=== PATIENT | male | born 1995 | race Caucasian/White ===

== ENCOUNTER 2016-10-24 11:28 | Emergency (ER) | payer OTHER ==
[2016-10-24 12:01] VITALS: BP 135/65; PULSE 56; TEMP 97.8; BMI 21.5
--- NOTE | 2016-10-24 12:48 | PDOC ---
History of Present Illness <Jin Briceño - Last Filed: 10/24/16 14:31> - General History Source: Patient Exam Limitations: No Limitations - History of Present Illness Initial Comments: 10/24/16 12:49 The patient is a 21 year old male, with significant past medical history of kidney stones, who presents today complaining of left sided chest pain and right flank pain. The patient states that the chest pain is intermittent since 5am this morning, lasting 30 seconds to 1 minute and spontaneously resolved. It is sharp, 5/10 in severity, and non-radiating. He notes that he visited a clinic this morning and was told he was bradycardic. He notes that since the appointment, the chest pain has become constant. 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 He reports right flank pain that radiates to his right side. He notes some nausea, but denies vomiting. He reports urinary frequency, but no hematuria. Denies dysuria, hematuria. Denies fever, chills, vomiting. Denies SOB, palpitations, cough. Denies abdominal pain. Allergies: none reported Social Hx: Tobacco use. Family Hx: Lung cancer, heart disease. No PCP <Melisa Gimenez - Last Filed: 10/24/16 14:43> - General Chief Complaint: Chest Pain Stated Complaint: CHEST PAIN Time Seen by Provider: 10/24/16 12:22 Past History - Past Medical History Cardiac Disorders: Yes (bradycardia) - Psycho/Social/Smoking Cessation Hx Anxiety: No Suicidal Ideation: No Smoking History: Current every day smoker Have you smoked in the past 12 months: Yes Number of Cigarettes Smoked Daily: 0 Information on smoking cessation initiated: No Hx Alcohol Use: No Drug/Substance Use Hx: No Substance Use Type: None <Jin Briceño - Last Filed: 10/24/16 14:31> <Melisa Gimenez - Last Filed: 10/24/16 14:43> - Past Medical History Allergies/Adverse Reactions: Allergies Allergy/AdvReac Type Severity Reaction Status Date / Time No Known Allergies Allergy Unverified 10/24/16 12:33 Home Medications: Ambulatory Orders Ibuprofen 800 mg PO TID #90 tablet 10/24/16 Review of Systems - Review of Systems Able to Perform ROS?: Yes Comments:: 10/24/16 12:49 GENERAL/CONSTITUTIONAL: No fever or chills. No weakness. HEAD, EYES, EARS, NOSE AND THROAT: No change in vision. No ear pain or discharge. No sore throat. CARDIOVASCULAR: +left sided chest pain. No shortness of breath. RESPIRATORY: No cough, wheezing, or hemoptysis. GASTROINTESTINAL: No nausea, vomiting, diarrhea or constipation. GENITOURINARY: + right flank pain, +frequency. No dysuria, hematuria. MUSCULOSKELETAL: No joint or muscle swelling or pain. No neck or back pain. SKIN: No rash NEUROLOGIC: No headache, vertigo, loss of consciousness, or change in strength/ sensation. ENDOCRINE: No increased thirst. No abnormal weight change. HEMATOLOGIC/LYMPHATIC: No anemia, easy bleeding, or history of blood clots. ALLERGIC/IMMUNOLOGIC: No hives or skin allergy. <Melisa Gimenez - Last Filed: 10/24/16 14:43> *Physical Exam - Vital Signs Last Vital Signs Temp Pulse Resp BP Pulse Ox 97.8 F 56 L 18 135/65 98 10/24/16 11:39 10/24/16 11:39 10/24/16 11:39 10/24/16 11:39 10/24/16 11:39 <Jin Briceño - Last Filed: 10/24/16 14:31> - Vital Signs Last Vital Signs Temp Pulse Resp BP Pulse Ox 97.8 F 56 L 18 135/65 98 10/24/16 11:39 10/24/16 11:39 10/24/16 11:39 10/24/16 11:39 10/24/16 11:39 - Physical Exam Comments: 10/24/16 12:49 GENERAL: Awake, alert, and fully oriented, in no acute distress HEAD: No signs of trauma EYES: PERRLA, EOMI, sclera anicteric, conjunctiva clear ENT: Auricles normal inspection, hearing grossly normal, nares patent, oropharynx clear without exudates. Moist mucosa NECK: Normal ROM, supple, no lymphadenopathy, JVD, or masses LUNGS: Breath sounds equal, clear to auscultation bilaterally. No wheezes, and no crackles HEART: Regular rate and rhythm, normal S1 and S2, no murmurs, rubs or gallops CHEST: Reproducible chest pain. ABDOMEN: Soft, nontender, normoactive bowel sounds. No guarding, no rebound. No masses EXTREMITIES: Normal range of motion, no edema. No clubbing or cyanosis. No cords, erythema, or tenderness NEUROLOGICAL: Cranial nerves II through XII grossly intact. Normal speech, normal gait SKIN: Warm, Dry, normal turgor, no rashes or lesions noted. <Melisa Gimenez - Last Filed: 10/24/16 14:43> ED Treatment Course - LABORATORY CBC & Chemistry Diagram: 10/24/16 12:45 10/24/16 12:45 - RADIOLOGY Radiology Studies Ordered: Category Date Time Status SPIRAL- RENAL-STONE CT [CT] Stat CT Scan 10/24/16 12:37 Ordered CHEST PA & LAT [RAD] Stat Radiology 10/24/16 12:37 Ordered <Jin Briceño - Last Filed: 10/24/16 14:31> - LABORATORY CBC & Chemistry Diagram: 10/24/16 12:45 10/24/16 12:45 - RADIOLOGY Radiograph Interpretation: 10/24/16 13:47 Chest X-ray As reported by Dr. Jalen Garcia Impression: Scoliosis. No acute pathology. no comparison studies 10/24/16 14:[address] As reported by Dr. Alize Serrato Impression: Punctate non obstructing stone in upper/midportion of the left kidney measuring 1-2mm. Otherwise, there is no evidence of hydroureteronephrosis or ureteral stone, bilaterally. <Melisa Gimenez - Last Filed: 10/24/16 14:43> *DC/Admit/Observation/Transfer - Discharge Dispostion Admit: No - Attestations Physician Attestion: 10/24/16 12:48 I, Dr. Jin Briceño, attest that this document has been prepared under my direction and personally reviewed by me in its entirety. I further attest, that it accurately reflects all work, treatment, procedures and medical decision -making performed by me. <Jin Briceño - Last Filed: 10/24/16 14:31> - Attestations Scribe Attestion: 10/24/16 12:49 Documentation prepared by RAÚL Tillman, acting as medical supply technician for Jin Briceño DO. <Melisa Gimenez - Last Filed: 05/23/17 14:43> Diagnosis at time of Disposition: Chest wall pain - Discharge Dispostion Disposition: HOME Condition at time of disposition: Good - Prescriptions Prescriptions: Ibuprofen 800 mg PO TID #90 tablet - Patient Instructions Printed Discharge Instructions: DI for Low Back Pain, DI for Atypical Chest Pain, DI for Muscle Strain Additional Instructions: Charlie - You have a pulled muscle in your chest and your side. Take Motrin 800 three times a day. Return to us if worse. See your doctor next week. Drink 5 20 ounce bottles of water a day. Print Language: MONTSERRATIAN
[2016-10-24 13:17] LABS: BASOPHIL 0.3 % (0-2.0); EOSINOPHIL 2.1 % (0-4.5); MCH 25.6 pg (25.7-33.7); MCHC 32.4 g/dl (32.0-35.9); MEAN CELL VOLUME 79.1 fl (80-96); MEAN PLT VOLUME 9.3 fl (7.5-11.1); NEUTROPHILS 51.3 % (42.8-82.8); PLATELET COUNT 207 K/MM3 (134-434); RDW 15.5 % (11.9-15.9); WHITE BLOOD COUNT 6.7 K/mm3 (4.0-10.0)
[2016-10-24 13:19] LABS: ALBUMIN 4.2 g/dl (3.4-5.0); ANION GAP 8 (8-16); BILIRUBIN,TOTAL 0.4 mg/dL (0.2-1.0); CO2 28 mmol/L (21-32); COCKROFT - GAULT 156.11; CREATININE 0.8 mg/dL (0.7-1.3); GLUCOSE,RANDOM 74 mg/dL (74-106); SGOT/AST 32 U/L (15-37); SGPT/ALT 41 U/L (12-78); TOT PROT 7.6 g/dl (6.4-8.2)
[2016-10-24 13:22] LABS: ALK PHOS 250 U/L (45-117); TROPONIN I < 0.02 ng/ml (0.00-0.05)
[2016-10-24 13:55] LABS: URINE APPEARANCE CLEAR; URINE BILIRUBIN NEGATIVE (NEGATIVE); URINE BLOOD NEGATIVE (NEGATIVE); URINE COLOR LTYELLOW; URINE GLUCOSE (UA) NEGATIVE (NEGATIVE); URINE KETONE NEGATIVE (NEGATIVE); URINE LEUK ESTERASE NEGATIVE (NEGATIVE); URINE NITRITE NEGATIVE (NEGATIVE); URINE PROTEIN NEGATIVE (NEGATIVE); URINE UROBILINOGEN NEGATIVE E.U./dl (0.2-1.0)
--- NOTE | 2016-10-24 15:49 | EKG ---
Test Reason : Blood Pressure : / mmHG Vent. Rate : 054 BPM Atrial Rate : 054 BPM P-R Int : 202 ms QRS Dur : 100 ms QT Int : 398 ms P-R-T Axes : 062 068 058 degrees QTc Int : 377 ms SINUS BRADYCARDIA WITH MARKED SINUS ARRHYTHMIA MINIMAL VOLTAGE CRITERIA FOR LVH, MAY BE NORMAL VARIANT CANNOT RULE OUT ANTERIOR INFARCT , AGE UNDETERMINED ABNORMAL ECG NO PREVIOUS ECGS AVAILABLE Confirmed by SHIKHA HUDSON, NEEL ([id number]) on 10/24/2016 3:49:14 PM Referred By: Confirmed By:NEEL TRIVEDI MD
== END 2016-10-24 14:44 | disposition home or self-care (01) ==
LOC: JER 11:28
DX: R07.89 Other chest pain (principal); N20.0 Calculus of kidney; Z87.442 Personal history of urinary calculi
CPT/HCPCS: 36415; 71020-TC; 74176; 80053; 81003; 82550; 82553; 84484; 85025; 93005; 93010; 99283-25

== ENCOUNTER 2017-02-10 01:09 | Emergency (ER) | payer OTHER ==
--- NOTE | 2017-02-10 02:18 | PDOC ---
History of Present Illness - General History Source: Patient Exam Limitations: No Limitations - History of Present Illness Initial Comments: 02/10/17 02:28 The patient is a 21-year-old male, with no significant past medical history, who presents to the ED with left-sided pain and testicular pain. The patient has had this pain in the past but it stopped for 2 months. 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 Pt has noted that his testicles swell up when he exerts himself. He denies any fever or cough. He denies any dysuria and states that he uses the bathroom normally. He denies any back pain. <Katheryn Cazares - Last Filed: 02/10/17 02:28> <Nicole Hammond - Last Filed: 02/10/17 06:35> - General Chief Complaint: Pain Stated Complaint: ABD PAIN Time Seen by Provider: 02/10/17 02:18 Past History <Katheryn Cazares - Last Filed: 02/10/17 02:28> - Past Medical History Cardiac Disorders: Yes (bradycardia) - Psycho/Social/Smoking Cessation Hx Anxiety: No Suicidal Ideation: No Smoking History: Current every day smoker Have you smoked in the past 12 months: Yes Number of Cigarettes Smoked Daily: 0 Hx Alcohol Use: No Drug/Substance Use Hx: No Substance Use Type: None <Nicole Hammond - Last Filed: 02/10/17 06:35> - Past Medical History Allergies/Adverse Reactions: Allergies Allergy/AdvReac Type Severity Reaction Status Date / Time No Known Allergies Allergy Unverified 10/24/16 12:33 Home Medications: Ambulatory Orders Ibuprofen 800 mg PO TID #90 tablet 10/24/16 Review of Systems - Review of Systems Able to Perform ROS?: Yes Comments:: 02/10/17 02:29 CONSTITUTIONAL: Absent: fever, chills, diaphoresis, generalized weakness, malaise, loss of appetite HEENT: Absent: rhinorrhea, nasal congestion, throat pain, throat swelling, difficulty swallowing, mouth swelling, ear pain, eye pain, visual Changes CARDIOVASCULAR: Absent: chest pain, syncope, palpitations, irregular heart rate, lightheadedness , peripheral edema RESPIRATORY: Absent: cough, shortness of breath, dyspnea with exertion, orthopnea, wheezing, stridor, hemoptysis GASTROINTESTINAL: Absent: abdominal pain, abdominal distension, nausea, vomiting, diarrhea, constipation, melena, hematochezia GENITOURINARY: Present:testicular pain and swelling Absent: dysuria, frequency, urgency, hesitancy, hematuria, flank pain MUSCULOSKELETAL: Present: left side pain Absent: arthralgia, joint swelling SKIN: Absent: rash, itching, pallor HEMATOLOGIC/IMMUNOLOGIC: Absent: easy bleeding, easy bruising, lymphadenopathy, frequent infections ENDOCRINE: Absent: unexplained weight gain, unexplained weight loss, heat intolerance, cold intolerance NEUROLOGIC: Absent: headache, focal weakness or paresthesias, dizziness, unsteady gait, seizure, mental status changes, bladder or bowel incontinence PSYCHIATRIC: Absent: anxiety, depression, suicidal or homicidal ideation, hallucinations. <Sandra Cazaresie - Last Filed: 02/10/17 02:28> *Physical Exam - Vital Signs Last Vital Signs Temp Pulse Resp BP Pulse Ox 98.6 F 52 L 17 140/96 96 02/10/17 02:14 02/10/17 02:14 02/10/17 02:14 02/10/17 02:14 02/10/17 02:14 - Physical Exam Comments: 02/10/17 02:32 GENERAL: Well developed, well nourished. Awake and alert. No acute distress. HEENT: Normocephalic, atraumatic. PERRLA, EOMI. No conjunctival pallor. Sclera are non- icteric. Moist mucous membranes. Oropharynx is clear. NECK: Supple. Full ROM. No JVD. Carotid pulses 2+ and symmetric, without bruits. No thyromegaly. No lymphadenopathy. CARDIOVASCULAR: Regular rate and rhythm. No murmurs, rubs, or gallops. Distal pulses are 2+ and symmetric. PULMONARY: No evidence of respiratory distress. Lungs clear to auscultation bilaterally. No wheezing, rales or rhonchi. ABDOMINAL: Soft. Non-tender. Non-distended. No rebound or guarding. No organomegaly. Normoactive bowel sounds. MUSCULOSKELETAL Normal range of motion at all joints. No bony deformities. No CVA tenderness. GENITOURINARY: (+)Left-sided inguinal deficit. EXTREMITIES: No cyanosis. No clubbing. No edema. No calf tenderness. SKIN: Warm and dry. Normal capillary refill. No rashes. No jaundice. NEUROLOGICAL: Alert, awake, appropriate. PSYCHIATRIC: Cooperative. Good eye contact. Appropriate mood and affect. <Katheryn Cazares - Last Filed: 02/10/17 02:28> Medical Decision Making - Medical Decision Making 02/10/17 06:33 Pt comes with left inguinal pain; He has had a left inguinal hernia for a long time; wprse the past 3 days. No strangulated hernia, but he has a clear inguinal deficit. I can feel the bulge in the inguinal canal when he coughs. Pt has no abdominal pain and no flank pain; no fever and no N/V/D. Home with outpatient surgery followup. Pt understands reasons to return to the ER for emergency inguinal strangulation etc. <Nicole Hammond - Last Filed: 02/10/17 06:35> *DC/Admit/Observation/Transfer - Attestations Scribe Attestion: 02/10/17 02:33 Documentation prepared by Katheryn Cazares, acting as medical billing and coding specialist for Nicole Hammond MD. <Katheryn Cazares - Last Filed: 02/10/17 02:28> - Discharge Dispostion Admit: No <Nicole Hammond - Last Filed: 02/10/17 06:35> Diagnosis at time of Disposition: Inguinal hernia - Discharge Dispostion Disposition: HOME Condition at time of disposition: Stable - Referrals Referrals: Stan Kruse MD [Staff Physician] - - Patient Instructions Printed Discharge Instructions: Groin Hernia -- Adult Print Language: TAJIK - Post Discharge Activity Work/School Note: Back to Work
[2017-02-10] MEDS ORDERED: IBUPROFEN 600 MG TABLET (FP) PO ONE ×2 (02:20→02:29)
[2017-02-10 02:22] VITALS: BP 140/96; PULSE 52; TEMP 98.6; BMI 21.8
== END 2017-02-10 03:26 | disposition home or self-care (01) ==
LOC: JER 01:09
DX: K40.90 Unilateral inguinal hernia, without obstruction or gangrene, not specified as recurrent (principal)
CPT/HCPCS: 99281-25

== ENCOUNTER 2019-02-03 17:02 | Emergency (ER) | payer OTHER ==
[2019-02-03 17:10] VITALS: BP 122/73; PULSE 60; TEMP 98.4; BMI 21.7
--- NOTE | 2019-02-03 17:10 | PDOC ---
Rapid Medical Evaluation Chief Complaint: Pain Time Seen by Provider: 02/03/19 17:07 Medical Evaluation: Allergies Allergy/AdvReac Type Severity Reaction Status Date / Time No Known Allergies Allergy Unverified 02/03/19 17:04 02/03/19 17:08 HPI: L groin pain x6 months PE: No gross deficits ORDERS: Nothing Discharge Disposition - Diagnosis Inguinal hernia - Referrals - Patient Instructions - Post Discharge Activity
[2019-02-03 19:01] LABS: URINE APPEARANCE CLOUDY; URINE BILIRUBIN NEGATIVE (NEGATIVE); URINE COLOR YELLOW; URINE GLUCOSE (UA) NEGATIVE (NEGATIVE); URINE KETONE NEGATIVE (NEGATIVE); URINE LEUK ESTERASE NEGATIVE (NEGATIVE); URINE NITRITE NEGATIVE (NEGATIVE); URINE PROTEIN NEGATIVE (NEGATIVE); URINE UROBILINOGEN 0.2 mg/dL (0.2-1.0)
--- NOTE | 2019-02-03 19:11 | PDOC ---
History of Present Illness - General Chief Complaint: Pain Stated Complaint: ABD PAIN Time Seen by Provider: 02/03/19 17:07 History Source: Patient Exam Limitations: No Limitations - History of Present Illness Initial Comments: 02/03/19 19:06 23 yo M w/ no PMHx comes in c/o 3 days of LLQ abdominal pain, constant, w/ pain on urination, frequency, urgency and hesitancy on urination. HE states that he had a similar episode 6 months ago, was taking diclofenac which helped the pain go away. He has told him PMD about the pain, had a sono done but does not know the results. Denies penile discharge, (+)sexually active with one partner, does not use protection, no h/o STDs, last sexual encounter was 1 mo ago. Also c/o 1 day of L testicular pain radiating to the LLQ, which started today. Pain has been constant since and feels like a pulling. no testicular swelling, no prior h/o testicular pain. no fever/chills, no NVD, no change in appetite, no back pain, no CP/SOB. 02/03/19 19:08 Past History - Past Medical History Allergies/Adverse Reactions: Allergies Allergy/AdvReac Type Severity Reaction Status Date / Time No Known Allergies Allergy Unverified 02/03/19 17:04 Home Medications: Ambulatory Orders Ibuprofen 800 mg PO TID #90 tablet 10/24/16 Cardiac Disorders: Yes (bradycardia) - Suicide/Smoking/Psychosocial Hx Smoking History: Current every day smoker Have you smoked in the past 12 months: Yes Number of Cigarettes Smoked Daily: 0 Information on smoking cessation initiated: No Hx Alcohol Use: No Drug/Substance Use Hx: No Substance Use Type: None Review of Systems - Review of Systems Able to Perform ROS?: Yes Constitutional: No: Chills, Fever, Malaise, Night Sweats HEENTM: No: Eye Pain, Recent change in vision, Throat Pain Respiratory: No: Cough, Shortness of Breath Cardiac (ROS): No: Chest Pain, Palpitations, Chest Tightness ABD/GI: Yes: Abdominal cramping. No: Diarrhea, Nausea, Vomiting : Yes: Dysuria, Testicular Pain. No: Discharge, Frequency, Flank Pain, Hematuria Musculoskeletal: No: Back Pain Integumentary: No: Rash Neurological: No: Headache, Numbness, Dizziness Psychiatric: No: Change in Appetite Endocrine: No: Unexplained Weight Loss *Physical Exam - Vital Signs Last Vital Signs Temp Pulse Resp BP Pulse Ox 98.4 F 60 18 122/73 98 02/03/19 17:05 02/03/19 17:05 02/03/19 17:05 02/03/19 17:05 02/03/19 17:05 - Physical Exam General Appearance: Yes: Nourished. No: Apparent Distress HEENT: positive: KSENIA, Normal ENT Inspection, Normal Voice. negative: Pale Conjunctivae, Scleral Icterus (R), Scleral Icterus (L) Neck: positive: Supple. negative: Decreased range of motion, Tender midline Respiratory/Chest: positive: Lungs Clear, Normal Breath Sounds. negative: Respiratory Distress, Accessory Muscle Use Cardiovascular: positive: Regular Rhythm, Regular Rate Gastrointestinal/Abdominal: positive: Normal Bowel Sounds, Tender (suprapubic and LLQ tenderness), Soft. negative: Guarding, Rebound Male Genitalia: positive: testicular tenderness (mild L testicular tenderness), epididymus tender (slightly). negative: discharge, testicular mass, inguinal hernia, CVAT Musculoskeletal: positive: Normal Inspection. negative: CVA Tenderness, Decreased Range of Motion Extremity: positive: Normal Capillary Refill, Normal Inspection, Normal Range of Motion. negative: Tender, Pedal Edema Integumentary: positive: Normal Color, Dry. negative: Jaundice, Rash Neurologic: positive: Fully Oriented, Alert, Normal Mood/Affect ED Treatment Course - ADDITIONAL ORDERS Additional order review: Laboratory Results 02/03/19 18:45 Urine Color Yellow Urine Appearance Cloudy Urine pH 7.0 Ur Specific [place] 1.019 Urine Protein Negative Urine Glucose (UA) Negative Urine Ketones Negative Urine Blood Negative Urine Nitrite Negative Urine Bilirubin Negative Urine Urobilinogen 0.2 Ur Leukocyte Esterase Negative - RADIOLOGY Radiology Studies Ordered: Category Date Time Status SCROTUM AND CONTENTS US [US] Stat Ultrasound 02/03/19 18:21 Ordered Medical Decision Making - Medical Decision Making 02/03/19 19:10 23 yo M w/ 3 days of LLQ abdominal pain, burning/pain on urination w/ hesitancy. Also c/o L testicular pain. WIll check UA, UCx, Urine gc/chlamydia, will do a testicular sono and reassess 02/03/19 19:48 CHange of shift, care of patient signed over to TRANSITION [facility] RN Jcarlos who will reassess patient, follow up sono results and likely discharge. Pt to follow up with PMD, urology. WIll empirically treat for STDs with ceftriaxone and zithromax 02/03/19 19:49 *DC/Admit/Observation/Transfer Diagnosis at time of Disposition: Testicular pain, left - Referrals - Patient Instructions - Post Discharge Activity
[2019-02-03] MEDS ORDERED: AZITHROMYCIN 500 MG TABLET PO ONE (19:47)
[2019-02-03] MEDS ORDERED: AZITHROMYCIN 500 MG TABLET ONE (20:13)
[2019-02-03] MEDS ORDERED: LIDOCAINE HCL 1%, 10 MG/ML (20ML VIAL) ONE (20:14)
--- NOTE | 2019-02-03 21:00 | PDOC ---
History of Present Illness - General Chief Complaint: Pain Stated Complaint: ABD PAIN Time Seen by Provider: 02/03/19 17:07 History Source: Patient - History of Present Illness Initial Comments: 02/03/19 20:57 Chin with testicular pain, awaiting ultrasound report, was treated with Rocephin and azithromycin in the ER. Past History - Past Medical History Allergies/Adverse Reactions: Allergies Allergy/AdvReac Type Severity Reaction Status Date / Time No Known Allergies Allergy Unverified 02/03/19 17:04 Home Medications: Ambulatory Orders Ibuprofen 800 mg PO TID #90 tablet 10/24/16 Cardiac Disorders: Yes (bradycardia) COPD: No - Suicide/Smoking/Psychosocial Hx Smoking History: Current every day smoker Have you smoked in the past 12 months: Yes Number of Cigarettes Smoked Daily: 0 Information on smoking cessation initiated: No Hx Alcohol Use: No Drug/Substance Use Hx: No Substance Use Type: None *Physical Exam - Vital Signs Last Vital Signs Temp Pulse Resp BP Pulse Ox 98.4 F 60 18 122/73 98 02/03/19 17:05 02/03/19 17:05 02/03/19 17:05 02/03/19 17:05 02/03/19 17:05 ED Treatment Course - ADDITIONAL ORDERS Additional order review: Laboratory Results 02/03/19 18:45 Urine Color Yellow Urine Appearance Cloudy Urine pH 7.0 Ur Specific [place] 1.019 Urine Protein Negative Urine Glucose (UA) Negative Urine Ketones Negative Urine Blood Negative Urine Nitrite Negative Urine Bilirubin Negative Urine Urobilinogen 0.2 Ur Leukocyte Esterase Negative - Medications Given in the ED: ED Medications Discontinued Medications Generic Name Dose Route Start Last Admin Trade Name Russq PRN Reason Stop Dose Admin Azithromycin 1,000 mg 02/03/19 19:47 02/03/19 20:20 Zithromax PO 02/03/19 19:48 1,000 mg ONCE ONE Administration Ceftriaxone Sodium 250 mg 02/03/19 19:47 02/03/19 20:20 Rocephin - IM 02/03/19 19:48 250 mg ONCE ONE Administration Medical Decision Making - Medical Decision Making 02/03/19 20:57 Patient with testicular pain, ultrasound does not show torsion, or acute pathology but does show calcifications, patient will be instructed to follow up with urologist for the reasons of increased risk of developing testicular cancer. Patient was treated with Rocephin and azithromycin. Discussed issues, findings, results, applicable medications and treatments and follow-up. All these were understood and all questions were answered *DC/Admit/Observation/Transfer Diagnosis at time of Disposition: Testicular pain, left - Discharge Dispostion Disposition: HOME Condition at time of disposition: Stable Decision to Admit order: No - Referrals Referrals: Benny Lee MD [Staff Physician] - - Patient Instructions Additional Instructions: Your ultrasound showed that you have microcalcifications in your testicle, this is not something that you need to have treatment for now but you need follow-up by a urologist to monitor because you are at increased risk for testicular cancer Return to the ER if you have fever, worsening pain or getting sicker - Post Discharge Activity
== END 2019-02-03 21:29 | disposition home or self-care (01) ==
LOC: JERFT 17:02
DX: N50.812 Left testicular pain (principal)
CPT/HCPCS: 36415; 76870-TC; 81003; 87086; 87491; 87591; 96372; 99282-25